=== PATIENT | female | born 1990 | race Caucasian/White ===

== ENCOUNTER 2017-04-24 20:25 | Emergency (ER) | payer BC ==
[2017-04-24 20:38] VITALS: BP 122/73
[2017-04-24] MEDS ORDERED: Phenazopyridine TAB* 100 MG PO ONE (20:50)
[2017-04-24] MEDS ORDERED: Nitrofurantoin Macrocrystals* 50 MG CAP PO ONE (20:50)
--- NOTE | 2017-04-24 20:56 | UC ---
Complaint Female HPI - HPI Summary HPI Summary: Dysuria, frequency, hematuria, voiding small amounts starting 2 days ago. Was not drinking much fluids until today, then symptoms have improved. Denies fever , back pain, or vomiting. - History Of Current Complaint Chief Complaint: UCGU Stated Complaint: POSSIBLE UTI Time Seen by Provider: 04/24/17 20:32 Hx Obtained From: Patient Hx Last Menstrual Period: 03/24/17 ?: No Onset/Duration: Gradual Onset, Lasting Days Timing: Constant Severity Initially: Moderate Severity Currently: Mild Character: Burning Aggravating Factor(s): Urination - Allergies/Home Medications Allergies/Adverse Reactions: Allergies Allergy/AdvReac Type Severity Reaction Status Date / Time No Known Allergies Allergy Verified 04/24/17 20:31 PMH/Surg Hx/FS Hx/Imm Hx Previously Healthy: Yes - Surgical History Surgical History: None - Family History Known Family History: Negative: Cardiac Disease, Hypertension, Diabetes - Social History Alcohol Use: Occasionally Substance Use Type: None Smoking Status (MU): Never Smoked Tobacco Review of Systems Constitutional: Negative Skin: Negative Eyes: Negative ENT: Negative Respiratory: Negative Cardiovascular: Negative Gastrointestinal: Negative Genitourinary: Dysuria, Hematuria, Frequency, Urgency Motor: Negative Neurovascular: Negative Musculoskeletal: Negative Neurological: Negative Psychological: Negative All Other Systems Reviewed And Are Negative: Yes Physical Exam Triage Information Reviewed: Yes Appearance: Well-Appearing, No Pain Distress, Well-Nourished Vital Signs: Initial Vital Signs Temp 98.8 F 04/24/17 20:32 Pulse 74 04/24/17 20:32 Resp 16 04/24/17 20:32 BP 122/73 04/24/17 20:32 Pulse Ox 100 04/24/17 20:32 Vital Signs Reviewed: Yes Eye Exam: Normal Eyes: Positive: Conjunctiva Clear ENT Exam: Normal ENT: Positive: Normal ENT inspection, Hearing grossly normal, Pharynx normal, TMs normal Dental Exam: Normal Neck exam: Normal Neck: Positive: Supple, Nontender, No Lymphadenopathy Respiratory Exam: Normal Respiratory: Positive: Chest non-tender, Lungs clear, Normal breath sounds, No respiratory distress, No accessory muscle use Cardiovascular Exam: Normal Cardiovascular: Positive: RRR, No Murmur Abdomen Description: Negative: CVA Tenderness (R), CVA Tenderness (L) Musculoskeletal Exam: Normal Neurological Exam: Normal Neurological: Positive: Alert Psychological Exam: Normal Skin Exam: Normal Complaint Female Dx - Differential Dx/Diagnosis Provider Diagnoses: UTI. elevated blood pressure due to discomfort Discharge - Discharge Plan Condition: Stable Disposition: HOME Prescriptions: Nitrofurantoin Monohyd Macro [Macrobid] 100 mg PO BID #9 cap Patient Education Materials: Urinary Tract Infection in Women (ED)
== END 2017-04-24 21:01 | disposition home or self-care (01) ==
LOC: UCCORT 20:25
DX: N39.0 Urinary tract infection, site not specified (principal); R03.0 Elevated blood-pressure reading, without diagnosis of hypertension
CPT/HCPCS: 81003; 84702; 87077; 87086; 99212; A9270-GY; G0463

== ENCOUNTER 2018-04-19 20:41 | Emergency (ER) | payer BC ==
--- NOTE | 2018-04-19 20:43 | UC ---
Skin Complaint HPI - HPI Summary HPI Summary: 27 yo female presents with rash to b/l hands that has been persisting in varying forms of severity for 1 month. 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 Has been applying many lotions and Vaselines with no relief. Rash is itchy. Denies fever, chills, or recent illness - History of Current Complaint Time Seen by Provider: 04/19/18 20:42 Stated Complaint: SKIN COMPLAINT Hx Obtained From: Patient Hx Last Menstrual Period: 03/24/17 Onset/Duration: Gradual Onset Current Severity: None - Allergy/Home Medications Allergies/Adverse Reactions: Allergies Allergy/AdvReac Type Severity Reaction Status Date / Time No Known Allergies Allergy Verified 04/24/17 20:31 Review of Systems Constitutional: Negative Skin: Rash Eyes: Negative ENT: Negative Respiratory: Negative Cardiovascular: Negative Neurological: Negative Psychological: Negative All Other Systems Reviewed And Are Negative: Yes PMH/Surg Hx/FS Hx/Imm Hx - Additional Past Medical History Additional PMH: None Previously Healthy: Yes - Surgical History Surgical History: None - Family History Known Family History: Negative: Cardiac Disease, Hypertension, Diabetes - Social History Occupation: Employed Full-time Lives: With Family Alcohol Use: Occasionally Substance Use Type: None Smoking Status (MU): Never Smoked Tobacco Physical Exam - Summary Physical Exam Summary: GENERAL: NAD. WDWN. No pain distress. SKIN: B/L dorsal hands: moderate sized plaques of dry skin and erythema. No streaking, bleeding, or drainage. NECK: Supple. Nontender. No lymphadenopathy. CHEST: No accessory muscle use. Breathing comfortably and in no distress. CV: RRR. Without m/r/g. NEURO: Alert. CN II-XII grossly intact. PSYCH: Age appropriate behavior. Triage Information Reviewed: Yes Vital Signs: Vital Signs: Temp Pulse Resp BP Pulse Ox 97.5 F 84 16 129/70 100 04/19/18 20:55 04/19/18 20:55 04/19/18 20:55 04/19/18 20:55 04/19/18 20:55 Course/Dx - Course Course Of Treatment: Eczema of hands likely due to constant hand washing and wet state at work. Rx for steroid cream - Diagnoses Provider Diagnoses: Eczema hands Discharge - Sign-Out/Discharge Documenting (check all that apply): Discharge/Admit/Transfer - Discharge Plan Condition: Stable Disposition: HOME Prescriptions: Betamethasone Valerate 1 applic TOPICAL BID #1 tube Patient Education Materials: Eczema (ED) Referrals: No Primary Care Phys,NOPCP [Primary Care Provider] - Additional Instructions: If you develop a fever, shortness of breath, chest pain, new or worsening symptoms - please call your PCP or go to the ED. - Billing Disposition and Condition Condition: STABLE Disposition: HOME
[2018-04-19 20:59] VITALS: BP 129/70
== END 2018-04-19 21:14 | disposition home or self-care (01) ==
LOC: UCCORT 20:41
DX: L30.9 Dermatitis, unspecified (principal)
CPT/HCPCS: 99212; G0463

== ENCOUNTER 2019-01-09 07:51 | Emergency (ER) | payer BC ==
--- OUTSIDE RECORDS SUMMARY | 2019-01-09 07:58 | XMS REPORT | Continuity of Care Document ---
:1990 External Reference #:[id number] Author Name Lorie Copeland MD Address [address] [facility] [place] [address] Care Team Providers Name Role Phone Mary Nolan FNP Care Team Information Rental Coordinator Unavailable Mary Nolan FNP Primary Care Physician Unavailable Payers Date Identification Numbers Payment Provider Subscriber Policy Number: [id number] Jama Pino Jona PayID: [id number] [address] [address] ASH[place] [address] Expires: 2018 Policy Number: [id number] Jama Pino Jona PayID: [id number] [address] [address] ASH[place] [address] Advance Directives Description No Information Available Problems Description No Information Family History Description No Information Available Social History Type Date Description Comments Sex Unknown Lives With Alone Diet Healthy, Well Balanced Smoke-Free Home is smoke-free Pets 1 cat 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 Independent with all ADL's Tobacco Use Start: Unknown Never Smoked Cigarettes Smoking Status Reviewed: 12/28/18 Never Smoked Cigarettes ETOH Use Occasionally consumes alcohol Tobacco Use Start: Unknown Patient has never smoked Allergies, Adverse Reactions, Alerts Description No Known Drug Allergies Medications Medication Date Status Form Strength Qnty SIG Indications Ordering Provider Desonide Active Ointment 0.05% 60gm Apply to L20.9 Viktoriya Nolan affected ALETHEA Hernandez area twice daily for 4 weeks No Active Hx Unknown Medications 019 - 019 Immunizations Description No Information Available Vital Signs Date Vital Result Comment 12/28/2018 9:31am BP Systolic 112 mmHg BP Diastolic 68 mmHg Body Temperature 96.2 F Heart Rate 79 /min Respiratory Rate 18 /min Height 62 inches 5'2" Weight 117.00 lb BMI (Body Mass Index) 21.4 kg/m2 BSA (Body Surface Area) 1.52 m2 [place] body weight in kilograms 50 kg O2 % BldC Oximetry 98 % 11/30/2018 8:58am BP Systolic Sitting Left Arm 108 mmHg BP Diastolic Sitting Left Arm 72 mmHg Body Temperature 97.7 F Heart Rate 80 /min Respiratory Rate 18 /min Height 62 inches 5'2" Weight 115.00 lb BMI (Body Mass Index) 21.0 kg/m2 BSA (Body Surface Area) 1.51 m2 [place] body weight in kilograms 50 kg Last Menstrual Period [id number] Results Test Date Facility Test Result H/L Range Note Urine Dipstick 12/28/2018 [facility] Color yellow Yellow [facility] Clarity clear Clear Ua Leuko neg Negative Ua Nitrite neg Negative Ua Urobilinogen 0.2 0.2 - 1.0 E.U./dL Ua Protein neg Negative Ua PH 7.0 6.5-7.5 Ua Blood neg Negative Ua Specific [place] 1.015 1.010-1.030 Ua Ketones neg Negative Ua Bilirubin neg Negative Ua Glucose neg Negative Urine Dipstick 11/30/2018 [facility] Inhouse Ua Leuko - Negative Ua Nitrite - Negative Ua Urobilinogen .2 0.2 - 1.0 E.U./dL Ua Protein - Negative Ua Blood - Negative Ua Specific [place] 1.015 1.010-1.030 Ua Ketones - Negative Ua Bilirubin - Negative Ua Glucose - Negative Procedures Description No Information Available Encounters Type Date Location Provider Dx Diagnosis Office Visit 12/28/2018 [facility] Mary Nolan FNP Z01.419 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 Apply socks over your hands and wrists at bedtime to help the ointment settle in.Call me in 1 month to let me know how the hands are looking. If they are not improved,this is probably an allergy or sensitivity to something in your work environment.Eczema can worsen with certain foods you eat - a major one is gluten and dairy. You could do a trial off each of these and see what happens, but do this before or after you begin the ointment, otherwise you won't know which one helped, if at all.Follow up:needs physical + pap/pelvic sometime in 2019
--- OUTSIDE RECORDS SUMMARY | 2019-01-09 07:58 | XMS REPORT | Continuity of Care Document ---
:1990 External Reference #:[id number] Author Name Lorie Copeland MD Address [address] [facility] [place] [address] Care Team Providers Name Role Phone Mary Nolan FNP Care Team Information Academic Support Coordinator Unavailable Mary Nolan FNP Primary Care Physician Unavailable Payers Date Identification Numbers Payment Provider Subscriber Policy Number: [id number] Jama Pino Jona PayID: [id number] [address] [address] ASHLEY [place] [address] Expires: 2018 Policy Number: [id number] Jama Pino Jona PayID: [id number] [address] [address] ASHLEY Garcia [address] Advance Directives Description No Information Available Problems Description No Information Family History Description No Information Available Social History Type Date Description Comments Sex Unknown Lives With Alone Diet Healthy, Well Balanced Smoke-Free Home is smoke-free Pets 1 cat 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 Independent with all ADL's Tobacco Use [...] kg/m2 BSA (Body Surface Area) 1.52 m2 [place] body weight in kilograms 50 kg O2 % BldC Oximetry 98 % 11/30/2018 8:58am BP Systolic Sitting Left Arm 108 mmHg BP Diastolic Sitting Left Arm 72 mmHg Body Temperature 97.7 F Heart Rate 80 /min Respiratory Rate 18 /min Height 62 inches 5'2" Weight 115.00 lb BMI (Body Mass Index) 21.0 kg/m2 BSA (Body Surface Area) 1.51 m2 [place] body weight in kilograms 50 kg Last Menstrual Period [id number] Results Test Date Facility Test Result H/L Range Note Urine Dipstick 12/28/2018 [facility] Ua Color yellow Yellow Ua Clarity clear Clear Ua Leuko neg Negative Ua Nitrite neg Negative Ua Urobilinogen 0.2 0.2 - 1.0 E.U./dL Ua Protein neg Negative Ua PH 7.0 6.5-7.5 Ua Blood neg Negative Ua Specific [place] 1.015 1.010-1.030 Ua Ketones neg Negative Ua Bilirubin neg Negative Ua Glucose neg Negative Urine Dipstick 11/30/2018 [facility] Ua Leuko - Negative Ua Nitrite - Negative Ua Urobilinogen .2 0.2 - 1.0 E.U./dL Ua Protein - Negative Ua Blood - Negative Ua Specific [place] 1.015 1.010-1.030 Ua Ketones - Negative Ua Bilirubin - Negative Ua Glucose - Negative Procedures Description No Information Available Encounters Type Date Location Provider Dx Diagnosis Office Visit 12/28/2018 [facility] Mary Nolan FNP 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 9:30a [facility] exam (general) (routine) w/o abn findings L20.9 Atopic dermatitis, unspecified D48.5 Neoplasm of uncertain behavior of skin Office Visit 11/30/2018 9:00a [facility] Mary Nolan, L20.9 Atopic dermatitis, [facility] 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 A goal of exercising 5 days per week for about 30 minutes is excellent.Make sure to drink lots of plain water throughoutthe day with a goal of 60 ounces total!Use sunscreen when outside in the sun for prolonged amount oftime.Follow up:1 year wweL20.9 Atopic dermatitis , unspecifiedComments:Much improved since last visit!Continue using steroid cream as neededCall for [id number] Neoplasm of uncertain behavior of skinComments:Because you have several raised, larger moles, I think it is robbins to have a yearly skin check with the canvas marker. I will put in this referral and we will contact you with the date/time.Referral:Mireille Ramirez M.D.,
--- NOTE | 2019-01-09 07:59 | UC ---
Complaint Female HPI - HPI Summary HPI Summary: Sudden onset of dysuria, frequency and urgency yesterday, not relieved by increasing fluid intake. Has had UTI's in the past, but without a history of frequent recurrence. - History Of Current Complaint Stated Complaint: URINARY COMPLAINT Time Seen by Provider: 01/09/19 07:54 Hx Obtained From: Patient Hx Last Menstrual Period: 09/16/18 Onset/Duration: Sudden Onset Timing: Intermittent Severity Initially: Moderate Severity Currently: Moderate Character: Burning Aggravating Factor(s): Urination Alleviating Factor(s): Nothing Associated Signs And Symptoms: Positive: Negative - Risk Factors Ectopic Risk Factor: Negative Ovarian Torsion Risk Factor: Negative - Allergies/Home Medications Allergies/Adverse Reactions: Allergies Allergy/AdvReac Type Severity Reaction Status Date / Time No Known Allergies Allergy Verified 10/09/18 09:41 PMH/Surg Hx/FS Hx/Imm Hx Previously Healthy: Yes - Surgical History Surgical History: None Surgery Procedure, Year, and Place: RIGHT LEG ORIF - Family History Known Family History: Negative: Cardiac Disease, Hypertension, Diabetes - Social History Occupation: Employed Full-time Alcohol Use: Occasionally Substance Use Type: None Smoking Status (MU): Never Smoked Tobacco Review of Systems All Other Systems Reviewed And Are Negative: Yes Constitutional: Positive: Negative Skin: Positive: Negative Eyes: Positive: Negative ENT: Positive: Negative Respiratory: Positive: Negative Cardiovascular: Positive: Negative Gastrointestinal: Positive: Negative Genitourinary: Positive: Dysuria, Frequency, Urgency Motor: Positive: Negative Neurovascular: Positive: Negative Musculoskeletal: Positive: Negative Neurological: Positive: Negative Psychological: Positive: Negative Is Patient Immunocompromised?: No Physical Exam Triage Information Reviewed: Yes Appearance: Well-Appearing, No Pain Distress ENT: Positive: Pharynx normal Neck: Positive: Supple, Nontender, No Lymphadenopathy Respiratory: Positive: Lungs clear, Normal breath sounds Cardiovascular: Positive: RRR, No Murmur Abdomen Description: Negative: CVA Tenderness (R), CVA Tenderness (L) Musculoskeletal Exam: Normal Neurological Exam: Normal Skin Exam: Other - dysplastic nevi, seeing derm Diagnostics - Laboratory Diagnostic Studies Completed/Ordered: UA with 3+ esterase and WBC's. Complaint Female Dx - Course Course Of Treatment: bactrim for treatment, pyridium for symptom relief. - Differential Dx/Diagnosis Differential Diagnosis/HQI/PQRI: Urinary Tract Infection Provider Diagnosis: UTI (urinary tract infection) Discharge - Sign-Out/Discharge Documenting (check all that apply): Patient Departure All imaging exams completed and their final reports reviewed: No Studies - Discharge Plan Condition: Stable Disposition: HOME Prescriptions: Phenazopyridine TAB* [Pyridium 100 mg TAB*] 100 mg PO TID PRN #10 tab PRN Reason: urinary burning Sulfamethox/Trimethoprim DS* [Bactrim DS 800/160 TAB*] 1 tab PO DAILY #6 tab Patient Education Materials: Urinary Tract Infection in Women (ED) Referrals: No Primary Care Phys,NOPCP [Primary Care Provider] - Additional Instructions: Ensure high intake of fluids. You can use pyridium as needed for relief of urinary burning, but it will color your urine bright orange. - Billing Disposition and Condition Condition: STABLE Disposition: Home
[2019-01-09 08:02] VITALS: BP 115/69
== END 2019-01-09 08:32 | disposition home or self-care (01) ==
LOC: UCCORT 07:51
DX: N39.0 Urinary tract infection, site not specified (principal)
CPT/HCPCS: 81003; 87077; 87086; 87186; 99212; G0463